=== PATIENT | male | born 1985 | race Caucasian/White ===

== ENCOUNTER 2023-08-07 09:21 | Outpatient (REF) | payer OTHER, SELFPAY ==
[2023-08-07 13:26] LABS: MANUAL DIFF FLAG NO
[2023-08-07 13:41] LABS: Basophils Percent Auto 0.6 % (0-2); Eosinophils Absolute Auto 0.1 X10*3/uL (0.0-0.4); Eosinophils Percent Auto 0.9 % (0-4); Hematocrit 44.9 % (42.0-52.0); Hemoglobin 15.3 g/dl (14.0-18.0); Imm Gran Abs Auto 0.02 X10*3/uL (0.00-0.03); Imm Gran Pct Auto 0.4 % (0.0-0.4); Lymphocytes Absolute Auto 1.3 X10*3/uL (1.2-4.9); Mean Corpuscular HGB Conc 34.1 g/dl (31.0-36.0); Mean Corpuscular Volume 82.2 fL (80.0-98.0); Mean Platelet Volume 12.7 fL (9.4-12.4); Monocytes Absolute Auto 0.5 X10*3/uL (0.1-1.2); Monocytes Percent Auto 9.1 % (2-11); Neutrophils Absolute Auto 3.4 x10*3/uL (2.0-8.3); Platelet Count 197 X10*3/uL (160-400); Red Blood Count 5.46 X10*6/uL (4.60-5.80); Red Cell Distribution Width 12.7 % (11.0-16.0); White Blood Count 5.3 X10*3/uL (4.8-10.8)
[2023-08-07 13:55] LABS: Estimated Average Glucose 252 mg/dL; Hemoglobin A1c % 10.4 % (<6.0)
[2023-08-07 14:24] LABS: Alanine Aminotransferase 29 U/L (0-40); Albumin Level 4.1 g/dL (3.5-5.0); Alkaline Phosphatase 69 U/L (39-117); Anion Gap 10 (12-20); Aspartate Amino Transferase 16 U/L (5-37); Bilirubin Total 0.4 mg/dL (0.0-1.0); Blood Urea Nitrogen 16 mg/dL (9-16); Carbon Dioxide 28 mmol/L (22-29); Chloride 104 mmol/L (96-108); Estimated Glomerular Filt Rate > 60; Glucose Random 224 mg/dL (60-115); Potassium 4.3 mmol/L (3.3-5.1); Sodium 138 mmol/L (135-145); Total Protein 7.2 g/dL (6.5-8.0)
== END 2023-08-07 09:22 | disposition home or self-care (01) ==
LOC: HO.MANLDS 09:21
PROVIDERS: Visit Provider Physician Assistant
DX: E11.9 Type 2 diabetes mellitus without complications (principal)
CPT/HCPCS: 36415; 80053; 83036; 85025

== ENCOUNTER 2024-01-13 11:18 | Outpatient (REF) | payer OTHER, SELFPAY ==
[2024-01-15 23:19] LABS: TS Negative Control Passed; TS Panel A 0; TS Panel B 0; TS Positive Control Passed; TSpotTB Negative (Negative)
== END 2024-01-13 11:19 | disposition home or self-care (01) ==
LOC: HO.MANLDS 11:18
PROVIDERS: Visit Provider Physician Assistant
DX: Z11.1 Encounter for screening for respiratory tuberculosis (principal)
CPT/HCPCS: 36415; 86481

== ENCOUNTER 2024-09-16 11:43 | Outpatient (REF) | payer OTHER, SELFPAY ==
--- OUTSIDE RECORDS SUMMARY | 2024-09-16 12:24 | XMS_ITS | Continuity of Care Document ---
Author Organization [facility], [facility] Address [address] [place] [address] Assessment No assessment recorded. Plan of Treatment Reminders Order Date Submit Date Provider Last Modified By Organization Details Last Modified Time Details Appointments FOLLOW UP 15 2024 11:15A ROBERT NAM Not available Not available Not available Lab CMP, serum or plasma 2024 025 [facility], [address] [place] [address], [id number], 09/16/2024 11:48:22 lipid panel, serum 2024 025 [facility], [address] [place] [address], [id number], 09/16/2024 11:48:22 hemoglobi n A1c, QN, blood 2024 025 [facility], [address] [place] [address], [id number], 09/16/2024 11:48:22 CBC w/ auto diff 2024 025 [facility], [address] [place] [address], [id number], 09/16/2024 11:48:22 Referral None recorded. Procedures None recorded. Surgeries None recorded. Imaging None recorded. Medication Orders None recorded. Patient TargetsNo targets recorded. Patient InstructionsNo instructions recorded. Reason for Referral None Reported. Problems Name Problem SNOMED Code Status Onset Date Resolution Date Notes Provider Name and Address Organization Details Recorded Time Type 2 diabetes mellitus 98868405 Active 2022 Not Available [facility] 3 23:31:47 Hemorrhoi ds 85611880 Active 2017 Not Available [facility] 3 23:31:47 Family history of leukemia 061731229 Active 2017 grandfathe r Not Available [facility] 3 23:31:47 Injury of knee 650322754 Active 2017 s/p trauma Not Available [facility] 3 23:31:47 Lower back injury 708799618 Active 2017 s/p trauma Not Available [facility] 3 23:31:47 Dislocati on of joint 616044274 Active 2017 L patellar Not Available [facility] 3 23:31:47 Notes:Some problems listed i n Document: #[id number] could not be added to this patient's chart. Please review this document and add these problems to the patient's chart manually as needed. Problem Notes None recorded. Medical Equipment None Reported. Allergies No known drug allergies Medications Name Sig Start Date Stop Date Status Note LastModified by Organization Details LastModified Time hydrocodo ne 10 mg-acetam inophen 325 mg tablet Take 1 tablet twice a day by oral route as needed for 7 days. 05/16 completed Not Available Not Available Not Available baclofen 20 mg tablet Take 1 tablet 3 times a day by oral route as needed for 14 days. 05/13 completed Not Available Not Available Not Available amoxicill in 875 mg tablet Take 1 tablet every 12 hours by oral route for 7 days. 08/06 completed Not Available Not Available Not Available furosemid e 20 mg tablet Take 1 tablet every day by oral route for 14 days. 06/03 completed 06/03/22 - complete d yesterda y Not Available Not Available Not Available metformin ER 500 mg tablet,ex tended release 24 hr Take 1 tablet twice a day by oral route for 90 days. 2023 active Not Available Not Available Not Avai lable Lantus Solostar U-100 Insulin 100 unit/mL (3 mL) subcutane ous pen Inject 30 units every day by subcutan eous route as directed . 05/13 completed Not Available Not Available Not Available Lantus Solostar U-100 Insulin 30 Units QD 05/13 completed Not Available Not Available Not Available Mucinex 1,200 mg tablet, extended release Take 1 tablet every 12 hours by oral route. 08/06 completed Not Available Not Available Not Available Humalog KwikPen (U-100) Insulin 100 unit/mL subcutane ous INJECT PER SLIDING SCALE INSTRUCT IONS 05/13 completed Not Available Not Available Not Available albuterol sulf 90 mcg/actua tion breath activated powder inhaler,s ensor Inhale 2 puffs every 4 hours by inhalati on route. 05/13 completed Not Available Not Available Not Available Vitals Date Recorded Body height Body mass index (BMI) Body weight Heart rate Oxygen saturation Oxygen saturation in Arterial blood by Pulse oximetry Systolic blood pressure Diastolic blood pressure Provider Name and Address Organization Details Last Updated DateTime 5 177.8 cm 39.4 kg/m2 917200. 39 g 80 /min 96 % 96 % 120 mm[Hg] 84 mm[Hg] Sujey Marmolejo [facility] 5 11:16:38 Social History Question Answer Notes LastModified by Organizat ion Details LastModified Time Tobacco Smoking Status Never Smoker Antonia rankin [facility] 02/18/2021 11:09:03 What Was The Date Of Your Most Recent Tobacco Screening? 09/16/2024 [email or web address] Information not available 09/16/2024 Sex: Unknown Functional Status None recorded. Mental Status None recorded. Family History Nothing Reported. Medical History No medical history recorded. Immunizations Vaccine Type Date Status Note Provider Nam e and Address Organization Details Recorded Time COVID-19, mRNA, LNP-S, PF, 30 mcg/0.3 mL dose 07/17/2020 completed Not Available [facility] 3 23:31:47 COVID-19, mRNA, LNP-S, PF, 30 mcg/0.3 mL dose 08/07/2020 completed Not Available [facility] 3 23:31:47 COVID-19, mRNA, LNP-S, PF, 30 mcg/0.3 mL dose 05/03/2021 completed Not Available [facility] 23:31:47 Past Encounters Encounter ID Performer Location Encounter Start Date Encounter Closed Date Diagnosis/Indication Diagnosis SNOMED-CT Code Diagnosis ICD10 Code Diagnosis Note [id number] Curt Solis DO [facility] [address] [facility],[place] [address] 09/16/2024 11:07:42 09/16/2024 11:48:39 Type 2 diabetes mellitus 13090934 E11.9 has standing labs set upf/u in 3 mos Depression screening 171 702975 Z13.31 negative Health Concerns Section Related Observation LastModified by Organization Detai ls LastModified Time None Recorded Concern Status LastModified by Organization Details LastModified Time None Recorded Payers Encounter Date Sequence Insurance Name Policy Number Policy Donohue Covered Member ID Donohue Member ID Guarantor Name 09/16/[address] [place] [address] [id number] Juan Miguel Faye [id number] Juan Miguel Faye Notes Date Note Type Note Provider Name a nd Address Organization Details Recorded Time 09/16/2024 text/html f/u 3 mos check the patient reports that he was unable submit the paperwork because they do not take a PA-C signature the patient and I discussed options, isn't going to go forward with 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
[2024-09-16 13:26] LABS: MANUAL DIFF FLAG NO
[2024-09-16 13:35] LABS: Basophils Absolute Auto 0.1 X10*3/uL (0.0-0.2); Basophils Percent Auto 0.7 % (0-2); Eosinophils Absolute Auto 0.1 X10*3/uL (0.0-0.4); Hematocrit 45.9 % (42.0-52.0); Hemoglobin 15.4 g/dl (14.0-18.0); Imm Gran Abs Auto 0.03 X10*3/uL (0.00-0.03); Imm Gran Pct Auto 0.4 % (0.0-0.4); Lymphocytes Absolute Auto 1.5 X10*3/uL (1.2-4.9); Lymphocytes Percent Auto 22.8 % (20-40); Mean Corpuscular HGB Conc 33.6 g/dl (31.0-36.0); Mean Corpuscular Hemoglobin 27.8 pg (27.0-33.0); Mean Corpuscular Volume 82.9 fL (80.0-98.0); Mean Platelet Volume 12.1 fL (9.4-12.4); Monocytes Absolute Auto 0.6 X10*3/uL (0.1-1.2); Monocytes Percent Auto 9.3 % (2-11); Neutrophils Absolute Auto 4.4 x10*3/uL (2.0-8.3); Neutrophils Percent Auto 65.8 % (45-73); Platelet Count 225 X10*3/uL (160-400); Red Blood Count 5.54 X10*6/uL (4.60-5.80); Red Cell Distribution Width 12.7 % (11.0-16.0); White Blood Count 6.7 X10*3/uL (4.8-10.8)
[2024-09-16 14:00] LABS: Estimated Average Glucose 289 mg/dL; Hemoglobin A1c % 11.7 % (<6.0)
[2024-09-16 14:46] LABS: Anion Gap 11 (12-20)
[2024-09-16 14:53] LABS: Alanine Aminotransferase 37 U/L (0-40); Albumin Level 4.3 g/dL (3.5-5.0); Alkaline Phosphatase 74 U/L (39-117); Aspartate Amino Transferase 21 U/L (5-37); Bilirubin Total 0.4 mg/dL (0.0-1.0); Blood Urea Nitrogen 17 mg/dL (9-16); Calcium 9.5 mg/dL (8.4-10.2); Carbon Dioxide 26 mmol/L (22-29); Chloride 105 mmol/L (96-108); Cholesterol 231 mg/dL (<200); Estimated Glomerular Filt Rate > 60; Glucose Random 193 mg/dL (60-115); HDL Cholesterol 36 mg/dL (>40); LDL Cholesterol Calculated 156 mg/dL (<100); Potassium 4.2 mmol/L (3.3-5.1); Sodium 138 mmol/L (135-145); Total Protein 7.1 g/dL (6.5-8.0); Triglycerides 199 mg/dL (<150)
== END 2024-09-16 11:44 | disposition home or self-care (01) ==
LOC: HO.MANLDS 11:43
PROVIDERS: Visit Provider Physician Assistant
DX: E11.9 Type 2 diabetes mellitus without complications (principal)
CPT/HCPCS: 36415; 80053; 80061; 83036; 85025

== ENCOUNTER 2025-01-18 08:41 | Outpatient (REF) | payer OTHER, SELFPAY | END 2025-01-18 08:42 | disposition home or self-care (01) | LOC: HO.LAB 08:41 | PROVIDERS: PCP Internal Medicine; Visit Provider Physician Assistant | DX: A49.8 Other bacterial infections of unspecified site (principal) | CPT/HCPCS: 36415; 85652; 86140; 87040 ==

== ENCOUNTER 2025-04-10 11:40 | Outpatient (REF) | payer OTHER, SELFPAY ==
--- OUTSIDE RECORDS SUMMARY | 2025-04-10 13:43 | XMS_ITS | Clinical Summary ---
Author Organization [facility] Address [address] [place] [address] Phone Care Team Providers Care Supervisor Component Assembler Name Role Phone Curt Solis Primary Care Provider [phone] Social History Tobacco Use Types Packs/Day Years Used Date Smoking Tobacco: Never Assessed Education Answer Date Recorded Are you interested in more education? Not on amy e 08/08/2022 Are you concerned about learning? Not on file 08/08/2022 No 08/08/2022 No 08/08/2022 Digital Access Answer Date Recorded No 09/05/2022 No 09/05/2022 Reliable internet access at home? Not on file 09/05/2022 Device with a working camera? Not on file Sex and Gender Information Value Date Recorded Sex Assigned at Not on file Legal Sex Male 9:14 PM EDT Gender Identity Not on file Sexual Orientation Not on file Last Filed Vital Signs Vital Sign Reading Time Taken Comments Blood Pressure 138/84 07/04/2014 9:48 AM EDT Pulse 72 07/04/2014 9:48 AM EDT Temperature - - Respiratory Rate - - Oxygen Saturation - - Inhaled Oxygen Concentration - - Weight 136.5 kg (301 lb) 07/04/2014 9:48 AM EDT Height 175.3 cm (5' 9 ) 07/04/2014 9:48 AM EDT Body Mass Index 44.45 07/04/2014 9:48 AM EDT Plan of Treatment Health Maintenance Due Date Last Done Comments Adult Td,Tdap Booster 1984 LIPID PANEL 1984 DEPRESSION SCREENING 1996 SMOKING Hx and SMOKELESS TOBACCO SCREENING 1997 HEPATITIS C SCREENING 2002 HIV ONE-TIME SCREENING (18-6 5 YEARS) 2002 INFLUENZA VACCINE (#1) 2024 COVID-19 VACCINE (2024-2 6 season) 2024 08/07/2020, 07/17/2020 HEPATITIS A VACCINES Aged Out No long er eligible based on patient's age to complete this topic HIB VACCINES Aged Out No longer eligi ble based on patient's age to complete this topic MENINGOCOCCAL VACCINES (ACWY) Aged Out No longer eligible based on patient's age to complete this topic MENINGOCOCCAL VACCINES (B) Aged Out N o longer eligible based on patient's age to complete this topic PNEUMOCOCCAL VACCINES (0-49 years) Aged Out No longer eligible b ased on patient's age to complete this topic Medical Devices Not on file [facility] H[facility] Care Teams Supervisor Component Assembler Relationship Specialty Start Date End Date Curt Solis DO [email or web address] PCP - General 04/16/17 Additional Source Comments The information contained in this document represents components of the legal health record. It is not the complete legal health record.[facility]
--- OUTSIDE RECORDS SUMMARY | 2025-04-10 13:44 | XMS_ITS | Encounter Summary ---
Author Organization [facility] Address [address] [place] [address] Phone Care Team Providers Care Strand Forming Machine Operator Name Role Phone Curt Solis DO Primary Care Provider [phone] Reason for Referral * Physical Therapy (Routine) - Closed Specialty Diagnoses / Procedures Referred By Max rogers Referred To Contact Physical Therapy Diagnoses Encounter for rehabilitation System, Provider Not In, [facility] [id number] [place] [address] Phone: tel: Referral ID Status Reason Start Date Expiration Date Visits Re quested Visits Authorized [id number] Closed 08/10/2017 04/12/2018 25 25 Encounter Details Date Type Department Care Team (Latest Contact Info) Description 08/10/2017 Transcribe Orders [facility] [address] [place] [address] Gamal Mccracken MD [address] [place] [address] Encounter for rehabilitation (Primary Dx) Social History Tobacco Use Types Packs/Day Years Used Date Smoking Tobacco: Never Assessed Sex and Gender Information Value Date Recorded Sex Assigned at Not on file Legal Sex Male 9:14 PM EDT Gender Identity Not on file Sexual Orientation Not on file documented as of this encounter Plan of Treatment Scheduled Referrals Name Type Priority Associated Diagnoses Orde r Schedule Ambulatory referral to [facility] Physical Therapy Outpatient Referral Routine Encounter for rehabilitation Ordered: 08/10/2017 documented as of this encounter Visit Diagnoses Diagnosis Encounter for rehabilitation- Primary documented in this encounter Care Teams Strand Forming Machine Operator Relationship Specialty Start Date End Date Curt Solis DO [email or web address] PCP - General 04/16/17 documented as of this encounter Additional Source Comments The information contained in this document represents components of the legal health record. It is not the complete legal health record.[facility]
[2025-04-10 14:03] LABS: MANUAL DIFF FLAG NO
[2025-04-10 14:19] LABS: Hematocrit 46.8 % (42.0-52.0); Hemoglobin 15.8 g/dl (14.0-18.0); Imm Gran Abs Auto 0.04 X10*3/uL (0.00-0.03); Imm Gran Pct Auto 0.6 % (0.0-0.4); Lymphocytes Absolute Auto 1.0 X10*3/uL (1.2-4.9); Mean Corpuscular HGB Conc 33.8 g/dl (31.0-36.0); Mean Corpuscular Hemoglobin 28.2 pg (27.0-33.0); Mean Corpuscular Volume 83.4 fL (80.0-98.0); NRBC Abs Auto 0.000 X10*3/uL (0.0-0.012); NRBC Pct Auto 0.0 /100WBC (0.0-0.2); Platelet Count 255 X10*3/uL (160-400); Red Blood Count 5.61 X10*6/uL (4.60-5.80); White Blood Count 6.3 X10*3/uL (4.8-10.8)
[2025-04-10 14:45] LABS: Alanine Aminotransferase 22 U/L (0-40); Albumin Level 4.4 g/dL (3.5-5.0); Alkaline Phosphatase 70 U/L (39-117); Anion Gap 12 (12-20); Aspartate Amino Transferase 19 U/L (5-37); Blood Urea Nitrogen 22 mg/dL (9-16); Calcium 9.5 mg/dL (8.4-10.2); Carbon Dioxide 26 mmol/L (22-29); Chloride 106 mmol/L (96-108); Estimated Glomerular Filt Rate > 60; Potassium 4.6 mmol/L (3.3-5.1); Sodium 139 mmol/L (135-145); Total Protein 7.2 g/dL (6.5-8.0)
== END 2025-04-10 11:41 ==
LOC: HO.MANLDS 11:40
PROVIDERS: Visit Provider Physician Assistant
DX: E11.9 Type 2 diabetes mellitus without complications (principal)
CPT/HCPCS: 36415; 80053; 83036; 85025